=== PATIENT | male | born 1945 | race Caucasian/White ===

== ENCOUNTER 2023-01-12 10:02 | Outpatient (RCR) | payer MEDICARE, SELFPAY ==
--- NOTE | 2023-01-12 11:26 | OPREHPOC ---
Outpatient Therapy Plan of Care This is a Multidisciplinary Plan of Care that may contain components documented by all disciplines (PT, OT, and ST.) PT Problem 1 PT Problem #1 Knowledge Deficit PT Goal 1 Goal Patient to demonstrate independence with HEP Target Visit 6 PT Problem 2 PT Problem #2 Pain PT Goal 1 Goal 1. Patient to report highest pain at 2/10 2. Patient to report ability to complete HEP with no increased in knee pain Target Visit 10 PT Problem 3 PT Problem #3 Impaired Range of Motion PT Goal 1 Goal Patient to demonstrate L knee AROM to 0-140 deg to return to stair navigation at PLOF Target Visit 10 PT Problem 4 PT Problem #4 Impaired Strength PT Goal 1 Goal Patient to demonstrate 5/5 L knee strength to get out of chair at PLOF Target Visit 10 PT Problem 5 PT Problem #5 Impaired Functional Mobil PT Goal 1 Goal 1. Patient to improve LEFS scoring by 20% 2. Patient to ambulate 1200' during 6 min walk test to improve house hold and community ambulation Target Visit 10
--- NOTE | 2023-01-12 11:27 | PTOPEVAL1 ---
Assessment and note entered by Lacey Wick DPT Evaluation Information Assessment Status Evaluation Diagnosis R knee pain Onset 12/21/22 Subjective Information Patient reports he underwnet R TKA on 12/21/22. He reports he did home health for 2 weeks following. He reports at his follow up MD appt they told him he was doing well. He is ambulating with a cane but prior did not use an AD. He reports difficulty with walking after sitting for prolonged periods and getting up out of a chair. He reports he has been released to drive. He returns to MD in February. Reported Pain Level Pain Score 2: Self Report Assessment PT Clinical Summary Patient is a 77 year old male who presents to PT with L knee pain s/p L TKA on 12/21/22. He demonstrates decreased L knee AROM, decreased L knee strength and impaired gait impairing his ability to get up from a chair and ambulate after sitting down for long periods of time. He would benefit from skilled PT to address impairments and return to PLOF. Plan of Care Interventions Electrical Stimulation,Gait Training,Hot Pack/Cold Pack,Manual Therapy,Neuro Re-education,Patient/ Caregiver Educati,Therapeutic Activities, Therapeutic Exercise PT Services Indicated Yes Treatment Frequency and 2x weekly for 10 visits Duration These treatments will address the objective and functional deficits as defined above. The patient will be advanced safely and appropriately in order for the patient to progress towards his/her prior level of function. Additional exercises will be introduced and as well as a comprehensive home exercise program upon discharge, if needed, ?to ensure carryover of functional gains achieved in the clinic. This treatment plan has been reviewed and agreement upon by the patient.
--- NOTE | 2023-02-10 17:15 | OPREHPOC ---
Outpatient Therapy Plan of Care This is a Multidisciplinary Plan of Care that may contain components documented by all disciplines (PT, OT, and ST.) PT Problem 1 PT Problem #1 Knowledge Deficit PT Goal 1 Goal Patient to demonstrate independence with HEP Target Visit 6 Progress Met PT Problem 2 PT Problem #2 Pain PT Goal 1 Goal 1. Patient to report highest pain at 2/10 2. Patient to report ability to complete HEP with no increased in knee pain 3. decrease pain in the L knee to 3/10 or less at worst Target Visit 10 PT Problem 3 PT Problem #3 Impaired Range of Motion PT Goal 1 Goal Patient to demonstrate bilateral knee AROM to 0- 140 deg to return to stair navigation at PLOF Target Visit 10 PT Problem 4 PT Problem #4 Impaired Strength PT Goal 1 Goal Patient to demonstrate 5/5 bilateral knee strength to get out of chair at PLOF Target Visit 10 PT Problem 5 PT Problem #5 Impaired Functional Mobil PT Goal 1 Goal 1. Patient to improve LEFS scoring by 20% 2. Patient to ambulate 1200' during 6 min walk test to improve house hold and community ambulation Target Visit 10
--- NOTE | 2023-02-10 17:15 | PTOPREEVAL ---
Assessment and note entered by JT File, PT Evaluation Information Assessment Status Re-evaluation Diagnosis R knee pain, L knee pain Onset 12/21/22 Subjective Information patient reports he was walking to his truck on and his L knee buckled and gave out on him. he reports he had immediate pain in the L knee. he reports he did not fall. she reports he has no pain in the R knee. he reports he is limping due to pain in the L knee. he reports initially getting up from sitting is the worst. Reported Pain Level Pain Score 0,8: Self Report Assessment PT Clinical Summary mr. panda presents to skilled PT services for his 8th skilled therapy visit for his R knee s/p R TKA. however, last wednesday (02/05/23), he injured his L knee when it gave out on hism during ambulation. he has not been able to walk without pain and is struggling to get arround. he displays signs and symptoms of an instability in the L knee due to OA. he presents with new pain, weakness, and decreased ambulation mechanics due to this L knee pain. he would benefit from continued skilled PT of the R knee, but with addition of exercises and goals focused on the L knee to return to walking, standing, and functional activities. Plan of Care Interventions Electrical Stimulation,Gait Training,Hot Pack/Cold Pack,Manual Therapy,Neuro Re-education,Patient/ Caregiver Educati,Therapeutic Activities, Therapeutic Exercise PT Services Indicated Yes Treatment Frequency and continue skilled PT 2x weekly for 2 more visits Duration per initial POC, but with addition of treatment and goals for the L knee. These treatments will address the objective and functional deficits as defined above. The patient will be advanced safely and appropriately in order for the patient to progress towards his/her prior level of function. Additional exercises will be introduced and as well as a comprehensive home exercise program upon discharge, if needed, ?to ensure carryover of functional gains achieved in the clinic. This treatment plan has been reviewed and agreement upon by the patient.
--- NOTE | 2023-02-18 08:24 | OPREHPOC ---
Outpatient Therapy Plan of Care This is a Multidisciplinary Plan of Care that may contain components documented by all disciplines (PT, OT, and ST.) PT Problem 1 PT Problem #1 Knowledge Deficit PT Goal 1 Goal Patient to demonstrate independence with HEP Target Visit 6 Progress Met PT Problem 2 PT Problem #2 Pain PT Goal 1 Goal 1. Patient to report highest pain at 2/10 2. Patient to report ability to complete HEP with no increased in knee pain 3. decrease pain in the L knee to 3/10 or less at worst Target Visit 10 Progress Not Met PT Problem 3 PT Problem #3 Impaired Range of Motion PT Goal 1 Goal Patient to demonstrate bilateral knee AROM to 0- 140 deg to return to stair navigation at PLOF Target Visit 10 Progress Not Met PT Problem 4 PT Problem #4 Impaired Strength PT Goal 1 Goal Patient to demonstrate 5/5 bilateral knee strength to get out of chair at PLOF Target Visit 10 Progress Met PT Problem 5 PT Problem #5 Impaired Functional Mobil PT Goal 1 Goal 1. Patient to improve LEFS scoring by 20% 2. Patient to ambulate 1200' during 6 min walk test to improve house hold and community ambulation Target Visit 10 Progress Partially Met Comment 6 min walk test not performed due to L knee pain
--- NOTE | 2023-02-18 08:25 | PTOPDC ---
Assessment and note entered by Lacey Wick DPT Evaluation Information Assessment Status Discharge Diagnosis R knee pain, L knee pain Onset 12/21/22 Subjective Information Patient reports his R knee has been doing good. He reports his L knee is causing him the most difficulty and sees the MD again on 03/04/23 regarding a knee replacement. He reports he is only using a cane due to L knee pain. Reported Pain Level Pain Score 6,0: Self Report Assessment PT Clinical Summary Mr. Dejesus was seen for 10 visits of skilled PT following R TKA. Patient made significant progress with R knee strength and ROM but has acute onset of L knee pain increasing difficulty with walking and functional activities. He reports no R knee pain and independence with HEP. He returns to MD on 03/04/23 regarding L TKA. Patient is appropriate for DC at this time. Plan of Care PT Services Indicated No
== END 2023-02-18 16:17 | disposition home or self-care (01) ==
LOC: CHSPT 10:02
PROVIDERS: Visit Provider Orthopaedic Surgery
DX: Z47.1 Aftercare following joint replacement surgery (principal); Z96.651 Presence of right artificial knee joint
CPT/HCPCS: 97014; 97110; 97161; 97164; 97530; G0283

== ENCOUNTER 2023-04-19 08:43 | Outpatient (RCR) | payer MEDICARE, SELFPAY ==
--- NOTE | 2023-04-19 09:56 | OPREHPOC ---
Outpatient Therapy Plan of Care This is a Multidisciplinary Plan of Care that may contain components documented by all disciplines (PT, OT, and ST.) PT Problem 1 PT Problem #1 Knowledge Deficit PT Goal 1 Goal patient to demonstrate independence with HEP Target Visit 5 PT Problem 2 PT Problem #2 Pain PT Goal 1 Goal 1. Patient to report highest pain at 2/10 2. Patient to report ability to sleep with no disturbance due to L knee pain Target Visit 10 PT Problem 3 PT Problem #3 Impaired Range of Motion PT Goal 1 Goal 1. Patient to demonstrate L knee AROM 0-130 deg to return to stair navigation at PLOF Target Visit 10 PT Problem 4 PT Problem #4 Impaired Strength PT Goal 1 Goal Patient to demonstrate 5/5 strength of the L LE to return to getting in and out of car at PLOF Target Visit 10 PT Problem 5 PT Problem #5 Impaired Functional Mobil PT Goal 1 Goal 1. Patient to improve LEFS by 20% 2. Patient to report ability to ambulate >30 minutes with no AD and no reports of increased L knee pain 3. Patient to report ability to get in and out of care with no increase in L knee pain Target Visit 10
--- NOTE | 2023-04-19 09:56 | PTOPEVAL1 ---
Assessment and note entered by Lacey Wick DPT Evaluation Information Assessment Status Evaluation Diagnosis L knee pain Onset 03/22/23 Subjective Information Patient reports he underwent L TKA on 03/22/2023. He reports he previously had a R TKA in Dec 2022. He reports the R knee is doing well. He reports he did 3 weeks of home health PT. He presents to PT with cane and reports he is using a cane outside of the house but does not feel he always needs it. He reports he has been doing ice and elevation due to swelling. He reports difficulty with walking prolonged periods, navigating stairs, and getting and in and out of the car. RTMD 05/18/23 Reported Pain Level Pain Score 4: Self Report Assessment PT Clinical Summary Mr. Dejesus presents to PT with L knee pain s/p L knee TKA on 03/22/23. Patient demonstrate decreased L knee AROM, decreased L knee strength and impaired gait mechanics limiting his ability to ambulate prolonged distances, navigate stairs, get into and out of the car and complete house hold tasks. Patient would benefit from skilled PT to address impairments and return to PLOF. Plan of Care Interventions Electrical Stimulation,Gait Training,Hot Pack/Cold Pack,Intermittent Compression,Manual Therapy, Neuro Re-education,Patient/Caregiver Educati, Therapeutic Activities,Therapeutic Exercise PT Services Indicated Yes Treatment Frequency and 2x weekly for 10 visits Duration These treatments will address the objective and functional deficits as defined above. The patient will be advanced safely and appropriately in order for the patient to progress towards his/her prior level of function. Additional exercises will be introduced and as well as a comprehensive home exercise program upon discharge, if needed, ?to ensure carryover of functional gains achieved in the clinic. This treatment plan has been reviewed and agreement upon by the patient.
--- NOTE | 2023-05-20 08:00 | OPREHPOC ---
Outpatient Therapy Plan of Care This is a Multidisciplinary Plan of Care that may contain components documented by all disciplines (PT, OT, and ST.) PT Problem 1 PT Problem #1 Knowledge Deficit PT Goal 1 Goal patient to demonstrate independence with HEP Target Visit 5 Progress Met PT Problem 2 PT Problem #2 Pain PT Goal 1 Goal 1. Patient to report highest pain at 2/10 2. Patient to report ability to sleep with no disturbance due to L knee pain Target Visit 10 Progress Met PT Problem 3 PT Problem #3 Impaired Range of Motion PT Goal 1 Goal 1. Patient to demonstrate L knee AROM 0-130 deg to return to stair navigation at PLOF Target Visit 10 Progress Met PT Problem 4 PT Problem #4 Impaired Strength PT Goal 1 Goal Patient to demonstrate 5/5 strength of the L LE to return to getting in and out of car at PLOF Target Visit 10 Progress Met PT Problem 5 PT Problem #5 Impaired Functional Mobil PT Goal 1 Goal 1. Patient to improve LEFS by 20% 2. Patient to report ability to ambulate >30 minutes with no AD and no reports of increased L knee pain, met 3. Patient to report ability to get in and out of car with no increase in L knee pain, met Target Visit 10 Progress Partially Met
--- NOTE | 2023-05-20 08:01 | PTOPDC ---
Assessment and note entered by Lacey Gordon DPT Evaluation Information Assessment Status Discharge Diagnosis L knee pain Onset 03/22/23 Subjective Information patient reports he was released by . he reports he has fallen 2x on step at his home. he reports no additional pain since fall. 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 he reports he is not using an AD. he reports he is independent with HEP Reported Pain Level Pain Score 2: Self Report Assessment PT Clinical Summary Mr. Dejesus attended 10 visits of skilled PT s/p L TKA. He met all goals except for LEFS scoring. He met goals for strength, ROM, HEP and pain. He reports he has returned to all daily activities at [facility]. He is independent with HEP and is appropriate for DC at this time. Plan of Care PT Services Indicated No
== END 2023-05-20 08:39 | disposition home or self-care (01) ==
LOC: CHSPT 08:43
PROVIDERS: Visit Provider Orthopaedic Surgery
DX: Z47.1 Aftercare following joint replacement surgery (principal); Z96.652 Presence of left artificial knee joint
CPT/HCPCS: 97110; 97112; 97161; 97750

== ENCOUNTER 2024-06-21 10:05 | Outpatient (RCR) | payer MEDICARE, SELFPAY ==
--- NOTE | 2024-06-21 12:11 | OPREHPOC ---
Outpatient Therapy Plan of Care This is a Multidisciplinary Plan of Care that may contain components documented by all disciplines (PT, OT, and ST.) PT Problem 1 PT Problem #1 Knowledge Deficit PT Goal 1 Goal / Goal Update The patient will be independent in a home exercise program. Target Visit 4 PT Problem 2 PT Problem #2 Pain PT Goal 1 Goal / Goal Update The patient will report no greater than 3/10 low back and right LE pain with standing and walking for 30+ minutes. Target Visit 10 PT Problem 3 PT Problem #3 Impaired Flexibility PT Goal 1 Goal / Goal Update The patient will demonstrate improved bilateral hamstring flexibility to -20 degrees tight or less in the 90/90 position to decrease stress on the lumbar spine. Target Visit 10 PT Problem 4 PT Problem #4 Impaired Functional Mobility PT Goal 1 Goal / Goal Update The patient will demonstrate 15% or less self perceived disability per the Back Index questionnaire. The patient will lift 10# from floor to waist with proper body mechanics. The patient will ambulate 1,000 feet during the 6 minute walk test to improve community ambulation.
--- NOTE | 2024-06-21 12:11 | PTOPEVAL1 ---
Assessment and note entered by Ekta Jacobsen, PT Evaluation Information Assessment Status Evaluation ICD-10 Condition Codes (PT) Radiculopathy, lumbar region M54.16 Onset 06/15/24 Subjective Information Wade Dejesus reports he has history of a L4-5 disc bulge and he has been having back and right leg pain. The pain has worsened recently. He has tried an injection in the past and it only last 5 days. He is scheduled to have another injection on August 02, 2024. He saw a neurologist and was prescribed PT and the injection. He has been diagnosed with spinal stenosis as well. He notes increased low back pain and right leg pain with walking, prolonged standing, and bending over for long periods. 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 He has been using Tylenol and a heating pad for pain relief. Reported Pain Level Pain Score 0: Self Report Assessment PT Clinical Summary Wade Dejesus presents with chronic low back pain and right LE pain that has worsened recently. He reports being diagnosed with a bulging disc at L4- 5 and spinal stenosis. He has difficulty and increased pain with prolonged standing, walking, and staying in a bent over position. He demonstrates tenderness in the right lumbar paraspinals, glutes, and hamstrings; decreased lumbar AROM with pain elicited with extension and left lateral flexion; decreased core and bilateral hip strength; decreased bilateral hamstring flexibility; decreased posture; and positive special tests consistent with lumbar nerve root impingement/irritation. He will benefit from skilled PT to address these limitations. Plan of Care Interventions Electrical Stimulation,Hot Pack/Cold Pack,Manual Therapy,Mechanical Traction,Neuro Re-education, Patient/Caregiver Education,Therapeutic Activities ,Therapeutic Exercise PT Services Indicated Yes Treatment Frequency and 2 times a week for 10 visits Duration These treatments will address the objective and functional deficits as defined above. The patient will be advanced safely and appropriately in order for the patient to progress towards his/her prior level of function. Additional exercises will be introduced and as well as a comprehensive home exercise program upon discharge, if needed, ?to ensure carryover of functional gains achieved in the clinic. This treatment plan has been reviewed and agreement upon by the patient.
--- NOTE | 2024-07-25 08:33 | OPREHPOC ---
Outpatient Therapy Plan of Care This is a Multidisciplinary Plan of Care that may contain components documented by all disciplines (PT, OT, and ST.) PT Problem 1 PT Problem #1 Knowledge Deficit PT Goal 1 Goal / Goal Update The patient will be independent in a home exercise program. Target Visit 4 Progress Met PT Problem 2 PT Problem #2 Pain PT Goal 1 Goal / Goal Update The patient will report no greater than 3/10 low back and right LE pain with standing and walking for 30+ minutes. Target Visit 10 Progress Not Met PT Problem 3 PT Problem #3 Impaired Flexibility PT Goal 1 Goal / Goal Update The patient will demonstrate improved bilateral hamstring flexibility to -20 degrees tight or less in the 90/90 position to decrease stress on the lumbar spine. Target Visit 10 Progress Not Met PT Problem 4 PT Problem #4 Impaired Functional Mobility PT Goal 1 Goal / Goal Update The patient will demonstrate 15% or less self perceived disability per the Back Index questionnaire. -not met The patient will lift 10# from floor to waist with proper body mechanics. -met The patient will ambulate 1,000 feet during the 6 minute walk test to improve community ambulation. -met
--- NOTE | 2024-07-25 08:33 | PTOPDC ---
Assessment and note entered by Ekta Jacobsen, PT Evaluation Information Assessment Status Progress ICD-10 Condition Codes (PT) Radiculopathy, lumbar region M54.16 Onset 06/15/24 Subjective Information Wade Dejesus reports he continues to have back and leg pain and it hasn't changed since participating in PT. 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 He is still limited to 10-15 minutes of standing before needing to sit. He is scheduled to have an injection next month. Reported Pain Level Pain Score 0: Self Report Assessment PT Clinical Summary Wade Dejesus has completed 10 skilled PT visits for lumbar radiculopathy. He is reporting no overall change since initiating PT. He demonstrates improved body mechanics with lifting and was able to lift 10# from the floor with good body mechanics for 5 repetitions today. He continues to demonstrate tightness in bilateral hamstrings, decreased lumbar AROM, crouched gait, and decreased core strength. He has met 50% of his goals. He is discharged to an independent [facility]. Plan of Care PT Services Indicated No
--- NOTE | 2024-07-25 08:34 | PTOPDC ---
Assessment and note entered by Ekta Jacobsen, PT Evaluation Information Assessment Status Discharge ICD-10 Condition Codes (PT) Radiculopathy, lumbar region M54.16 Onset 06/15/24 Subjective Information Wade Dejesus reports he continues to have back and leg pain and it hasn't changed since participating in PT. 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 He is still limited to 10-15 minutes of standing before needing to sit. He is scheduled to have an injection next month. Reported Pain Level Pain Score 0: Self Report Assessment PT Clinical Summary Wade Dejesus has completed 10 skilled PT visits for lumbar radiculopathy. He is reporting no overall change since initiating PT. He demonstrates improved body mechanics with lifting and was able to lift 10# from the floor with good body mechanics for 5 repetitions today. He continues to demonstrate tightness in bilateral hamstrings, decreased lumbar AROM, crouched gait, and decreased core strength. He has met 50% of his goals. He is discharged to an independent [facility]. Plan of Care PT Services Indicated No
== END 2024-07-25 20:00 | disposition home or self-care (01) ==
LOC: CHSPT 10:05
DX: M54.16 Radiculopathy, lumbar region (principal)
CPT/HCPCS: 97014; 97110; 97112; 97150; 97161; 97530; 97750; G0283